=== PATIENT | male | born 1995 | race Caucasian/White ===

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

== ENCOUNTER 2017-01-18 10:44 | Emergency (ER) | payer OTHER ==
[~2017-01-18] VITALS: Ht 182.9 cm; Wt 114.8 kg
[2017-01-18 13:35] LABS: microscopic required? NO
[2017-01-18 14:07] LABS: urine erythrocyte NEGATIVE (NEGATIVE)
[2017-01-18 15:54] VITALS: BP 125/73
== END 2017-01-18 16:00 | disposition home or self-care (01) ==
LOC: ED 10:44
PROVIDERS: Specialist
DX: R10.32 Left lower quadrant pain (principal)

== ENCOUNTER 2019-03-03 22:09 | Emergency (ER) | payer OTHER ==
[~2019-03-03] VITALS: Ht 182.9 cm; Wt 122.7 kg
[2019-03-03 23:33] LABS: BASOPHIL % 0.3 % (0-2); PLATELET COUNT 259 x10^3mcL (130-400); RED CELL DISTRIBUTION WIDTH 13.2 % (11.5-14.5)
[2019-03-03 23:41] LABS: CALCIUM 8.7 mg/dL (8.5-10.1); CARBON DIOXIDE 26.5 mmol/L (21-32); CHLORIDE SERUM 105 mmol/L (98-107); GFR1 > 60 mL/min; GLUCOSE SERUM 87 mg/dL (74-106); POTASSIUM SERUM 3.7 mmol/L (3.5-5.1); SODIUM SERUM 144 mmol/L (136-145)
[2019-03-03 23:45] LABS: ALBUMIN 4.2 g/dL (3.4-5.0); ALKALINE PHOSPHATASE 89 U/L (46-116); ALT/SGPT 28 U/L (16-63); AMYLASE 40 U/L (25-115); AST/SGOT 15 U/L (15-37); BILIRUBIN TOTAL 0.4 mg/dL (0.20-1.00); LIPASE 135 IU/L (73-393); TOTAL PROTEIN, SERUM 7.9 g/dL (6.4-8.2)
[2019-03-04 02:05] VITALS: BP 149/74
== END 2019-03-04 02:05 | disposition home or self-care (01) ==
LOC: ED 22:09
PROVIDERS: Specialist
DX: R10.12 Left upper quadrant pain (principal); D72.829 Elevated white blood cell count, unspecified; R11.0 Nausea
CPT/HCPCS: 36415

== ENCOUNTER 2019-08-07 22:34 | Emergency (ER) | payer OTHER ==
[~2019-08-07] VITALS: Ht 182.9 cm; Wt 121.6 kg
[2019-08-07 22:47] VITALS: Ht 182.9 cm; Wt 121.6 kg
[2019-08-07 23:12] VITALS: BP 136/77
== END 2019-08-08 00:11 | disposition home or self-care (01) ==
LOC: ED 22:34
DX: R05 Cough (principal); R06.02 Shortness of breath; R50.9 Fever, unspecified; I10 Essential (primary) hypertension

== ENCOUNTER 2019-08-26 23:18 | Emergency (ER) | payer OTHER ==
[~2019-08-26] VITALS: Ht 182.9 cm; Wt 115.7 kg
[2019-08-26 23:25] VITALS: Ht 182.9 cm; Wt 115.7 kg
[2019-08-27 01:19] VITALS: BP 136/63
== END 2019-08-27 00:50 | disposition home or self-care (01) ==
LOC: ED 23:18
DX: F45.8 Other somatoform disorders (principal); I10 Essential (primary) hypertension